=== PATIENT | male | born 1975 | race American Indian/Alaskan Native ===

== ENCOUNTER 2016-11-21 22:42 | Emergency (ER) | payer MEDICAID ==
[~2016-11-21] VITALS: Ht 185.4 cm; Wt 103.4 kg
[~2016-11-21 22:42] MED LIST: HYDR-971 PO; ONDA4TAB10 SL
[2016-11-21 22:54] VITALS: BP 117/65
--- NOTE | 2016-11-21 23:26 | PHYS DOC ---
Past Medical History Past Medical History: No Pertinent History Additional Past Medical Histor: pancreatitis Past Surgical History: No Surgical History Alcohol Use: Rarely Drug Use: None Adult General Chief Complaint Chief Complaint: ANKLE PROBLEM [facility] HPI Patient is a 41 year old male presents emergency department stating that he has having left ankle pain. He states the pain is along the medial side in the anterior part of his ankle. He states that he is having numbness and tingling into the toes although he does have good sensation and good movement. Patient also also complaining of left knee pain and discomfort. He states that he went to step off a curb and twisted his ankle around 3:30 today. He has taken 2 Aleve 's without relief. He states he has placed ice packs on the area as well as elevation. Review of Systems Review of Systems Constitutional: Denies fever or chills [] Eyes: Denies change in visual acuity, redness, or eye pain [] HENT: Denies nasal congestion or sore throat [] Respiratory: Denies cough or shortness of breath [] Cardiovascular: No additional information not addressed in HPI [] Musculoskeletal: Denies back pain. C/o left ankle and knee pain Integument: Denies rash or skin lesions [] Neurologic: Denies headache, focal weakness or sensory changes [] Allergies Allergies Allergies Coded Allergies Type Severity Reaction Last Updated Verified No Known Drug Allergies 06/21/16 No Physical Exam Physical Exam Constitutional: Well developed, well nourished, no acute distress, non-toxic appearance. [] HENT: Normocephalic, atraumatic, bilateral external ears normal, oropharynx moist, no oral exudates, nose normal. [] Eyes: PERRLA, EOMI, conjunctiva normal, no discharge. [] Neck: Normal range of motion, no tenderness, supple, no stridor. [] Cardiovascular:Heart rate regular rhythm Lungs & Thorax: no respiratory distress Skin: Warm, dry, no erythema, no rash. [] Back: No tenderness Extremities: Left medial and anterior ankle tenderness, no cyanosis, no clubbing , ROM intact, no edema. Peripheral pulses 2+ cap refill brisk less than 2 seconds. Patient was able to move toes without difficulty. Patient with pain noted along the medial and lateral part of the knee. No bruising or discoloration noted at the knee or ankle area. No deformities noted. Neurologic: Alert and oriented X 3, normal motor function, normal sensory function, no focal deficits noted. [] Psychologic: Affect normal, judgement normal, mood normal. [] Current Patient Data Vital Signs Vital Signs Date Time Temp Pulse Resp B/P Pulse Ox O2 Delivery O2 Flow Rate FiO2 11/21/16 22:54 97.7 63 16 99 Room Air 97.7 EKG EKG [] Radiology/Procedures Radiology/Procedures [] Course & Med Decision Making Course & Med Decision Making Pertinent Labs and Imaging studies reviewed. (See chart for details) Ankle and knee x-rays are negative for any bony abnormalities. Patient will be placed in a Jason wrap to the left ankle with a Air-Stirrup splint. Patient will be discharged home with recommendations for ibuprofen 800 mg every 8 hours with food stop taking few develop an upset stomach. Wear the Jason wrap for the next 5- 7 days in the Air-Stirrup splint for the next 7-10 days. Ice packs on 20 minutes off 20 minutes several times a day elevation as much as possible. Follow -up with orthopedic if he continued to have pain within the next week. Patient agrees with discharge instructions treatment regimens and follow-up recommendations. Patient was provided with signs and symptoms to return back to emergency department. [] Dragon Disclaimer Dragon Disclaimer This electronic medical record was generated, in whole or in part, using a voice recognition dictation system. Departure Departure Impression: Primary Impression: Left ankle sprain Disposition: HOME, SELF-CARE Condition: STABLE Referrals: NO PCP (PCP) Patient Instructions: Ankle Sprain, [id number] Additional Instructions: X-rays of both your knee and ankle were negative for any bony abnormalities. Home to rest. Ice packs on 20 minutes off 20 minutes several times a day. Elevation as much as possible. Ibuprofen 800 mg every 8 hours with food stop taking few develop an upset stomach. Wear the Jason wrap for the next 5-7 days. Wear the Air-Stirrup splint for the next 7-10 days. Follow-up with orthopedic in the next week. Return back to emergency prior signs symptoms of become worse. ADELE CAMPBELL NP Nov 21, 2016 23:26
--- NOTE | 2016-11-22 08:17 | RAD ---
Left knee, 3 views, 11/21/2016: History: Injury, pain No fracture or dislocation is identified. There is mild spurring at the knee joint. A small sclerotic focus in the medial aspect of the distal femur is probably an old healed fibrous cortical defect. No joint effusion is evident. IMPRESSION: No acute left knee abnormality is detected.
--- NOTE | 2016-11-22 08:22 | RAD ---
Left ankle, 3 views, 11/21/2016: History: Ankle injury, pain No fracture or dislocation is identified. There is mild spurring at the ankle joint. IMPRESSION: No acute abnormality is detected
== END 2016-11-22 00:20 | disposition home or self-care (01) ==
LOC: ER 22:42
DX: S93.402A Sprain of unspecified ligament of left ankle, initial encounter (principal); X50.1XXA Overexertion from prolonged static or awkward postures, initial encounter; Y93.89 Activity, other specified; Y92.89 Other specified places as the place of occurrence of the external cause; Y99.8 Other external cause status
CPT/HCPCS: 29515; 73562; 73610; 99284-25

== ENCOUNTER 2016-12-09 15:12 | Emergency (ER) | payer MEDICAID ==
[~2016-12-09] VITALS: Ht 185.4 cm; Wt 106.6 kg
[2016-12-09 16:07] LABS: BASO % 1 % (0-3); EOS % 1 % (0-3); HEMATOCRIT 43.8 % (39.0-53.0); HEMOGLOBIN 14.4 g/dL (13.0-17.5); LYMPH # 2.3 x10^3/uL (1.0-4.8); LYMPH % 39 % (24-48); MEAN CORPUSCULAR HEMOGLOBIN 31 pg (25-35); MEAN CORPUSCULAR HGB CONC 33 g/dL (31-37); MEAN CORPUSCULAR VOLUME 93 fL (79-100); MONO % 10 % (0-9); NEUT % 50 % (31-73); PLATELET COUNT 198 x10^3/uL (140-400); RED BLOOD COUNT 4.71 x10^6/uL (4.30-5.70); RED CELL DISTRIBUTION WIDTH 14.9 % (11.5-14.5); WHITE BLOOD COUNT 6.1 x10^3/uL (4.0-11.0)
[2016-12-09 16:15] LABS: PROTHROMBIN TIME PATIENT 12.8 SEC (11.7-14.0)
[2016-12-09] MEDS ORDERED: IV NORMAL SALINE 1000ML BAG 1,000 ML IV ONE (16:15)
[2016-12-09] MEDS ORDERED: FENTANYL PF 100 MCG/2 ML VIAL. IV ONE (16:15)
[2016-12-09] MEDS ORDERED: ONDANSETRON PF 4 MG/2 ML VIAL. IV ONE (16:15)
[2016-12-09 16:20] LABS: CALCIUM 9.2 mg/dL (8.5-10.1); CREATININE 0.9 mg/dL (0.7-1.3); GFR 112.5; POTASSIUM 3.7 mmol/L (3.5-5.1)
[2016-12-09 16:25] LABS: BARBITURATES NEG (NEG); BENZODIAZEPINES NEG (NEG); CANNABINOIDS POS (NEG); COCAINE NEG (NEG); METHADONE NEG (NEG); OPIATES NEG (NEG); PHENCYCLIDINE NEG (NEG)
[2016-12-09 16:25] LABS: ALBUMIN 4.1 g/dL (3.4-5.0); ALBUMIN/GLOBULIN RATIO 1.3 (1.0-1.7); TOTAL BILIRUBIN 0.9 mg/dL (0.2-1.0); TOTAL PROTEIN 7.3 g/dL (6.4-8.2)
[2016-12-09 16:26] LABS: ETHANOL, URINE NEG (NEG)
--- NOTE | 2016-12-09 16:27 | RAD ---
Portable chest, 12/09/2016: History: Epigastric pain, nausea and vomiting The heart size and pulmonary vascularity are normal. No pulmonary infiltrates are seen. There is no evidence of pleural fluid. IMPRESSION: No acute cardiopulmonary abnormality is detected.
[2016-12-09 17:25] VITALS: BP 129/73
--- NOTE | 2016-12-09 17:32 | PHYS DOC ---
Past Medical History Past Medical History: Other Additional Past Medical Histor: pancreatitis Past Surgical History: No Surgical History Alcohol Use: Rarely Drug Use: None Adult General Chief Complaint Chief Complaint: ABDOMINAL PAIN HPI HPI 41-year-old male who is otherwise healthy came home from work today around 2 AM and felt nauseous. He was able to go to sleep and then woke up later in the morning and vomited several times. Since that time is been unable to keep anything down. He states he has pain in his upper abdomen that is crampy in nature and radiates out to it's flanks. He denies any lower abdominal pain. He denies any fever chills or sweats. He has not had any melena or hematemesis. He denies any chest pain or shortness of breath. [] Review of Systems Review of Systems Constitutional: Denies fever or chills [] Eyes: Denies change in visual acuity, redness, or eye pain [] HENT: Denies nasal congestion or sore throat [] Respiratory: Denies cough or shortness of breath [] Cardiovascular: No additional information not addressed in HPI [] GI: Per history of present illness [] : Denies dysuria or hematuria [] Musculoskeletal: Denies back pain or joint pain [] Integument: Denies rash or skin lesions [] Neurologic: Denies headache, focal weakness or sensory changes [] Endocrine: Denies polyuria or polydipsia [] Current Medications Current Medications Current Medications Medications (Trade) Dose Ordered Sig/Jose Start Time Stop Time Status Last Admin Dose Admin Fentanyl Citrate (Fentanyl 2ml Vial) 50 mcg 1X ONCE 12/09/16 16:15 12/09/16 16:17 DC 12/09/16 16:21 50 MCG Ondansetron HCl (Zofran) 4 mg 1X ONCE 12/09/16 16:15 12/09/16 16:16 DC 12/09/16 16:19 4 MG Sodium Chloride (Iv Sodium Chloride 0.9% 1000ml Bag) 1,000 ml @ 1,000 mls/hr 1X ONCE 12/09/16 16:15 12/09/16 17:14 DC 12/09/16 16:21 1,000 MLS/HR Allergies Allergies Allergies Coded Allergies Type Severity Reaction Last Updated Verified No Known Drug Allergies 06/21/16 No Physical Exam Physical Exam Constitutional: Well developed, well nourished, mild distress, non-toxic appearance. [] HENT: Normocephalic, atraumatic, bilateral external ears normal, oropharynx moist, no oral exudates, nose normal. [] Eyes: PERRLA, EOMI, conjunctiva normal, no discharge. [] Neck: Normal range of motion, no tenderness, supple, no stridor. [] Cardiovascular:Heart rate regular rhythm, no murmur [] Lungs & Thorax: Bilateral breath sounds clear to auscultation [] Abdomen: Bowel sounds normal, soft, no tenderness, no masses, no pulsatile masses. [] Skin: Warm, dry, no erythema, no rash. [] Back: No tenderness, no CVA tenderness. [] Extremities: No tenderness, no cyanosis, no clubbing, ROM intact, no edema. [] Neurologic: Alert and oriented X 3, normal motor function, normal sensory function, no focal deficits noted. [] Psychologic: Affect normal, judgement normal, mood normal. [] Current Patient Data Vital Signs Vital Signs Date Time Temp Pulse Resp B/P Pulse Ox O2 Delivery O2 Flow Rate FiO2 12/09/16 16:21 20 99 Room Air 12/09/16 15:15 97.7 52 135/89 97.7 Lab Values Laboratory Tests Test 12/09/16 15:30 12/09/16 15:55 White Blood Count 6.1x10^3/uL (4.0-11.0) Red Blood Count 4.71x10^6/uL (4.30-5.70) Hemoglobin 14.4g/dL (13.0-17.5) Hematocrit 43.8% (39.0-53.0) Mean Corpuscular Volume 93fL (79-100) Mean Corpuscular Hemoglobin 31pg (25-35) Mean Corpuscular Hemoglobin Concent 33g/dL (31-37) Red Cell Distribution Width 14.9% (11.5-14.5) H Platelet Count 198x10^3/uL (140-400) Neutrophils (%) (Auto) 50% (31-73) Lymphocytes (%) (Auto) 39% (24-48) Monocytes (%) (Auto) 10% (0-9) H Eosinophils (%) (Auto) 1% (0-3) Basophils (%) (Auto) 1% (0-3) Neutrophils # (Auto) 3.1x10^3uL (1.8-7.7) Lymphocytes # (Auto) 2.3x10^3/uL (1.0-4.8) Monocytes # (Auto) 0.6x10^3/uL (0.0-1.1) Eosinophils # (Auto) 0.1x10^3/uL (0.0-0.7) Basophils # (Auto) 0.0x10^3/uL (0.0-0.2) Prothrombin Time 12.8SEC (11.7-14.0) Prothrombin Time INR 1.0 (0.8-1.1) Sodium Level 146mmol/L (136-145) H Potassium Level 3.7mmol/L (3.5-5.1) Chloride Level 109mmol/L (98-107) H Carbon Dioxide Level 31mmol/L (21-32) Anion Gap 6 (6-14) Blood Urea Nitrogen 13mg/dL (8-26) Creatinine 0.9mg/dL (0.7-1.3) Estimated GFR (Cockcroft-Gault) 112.5 BUN/Creatinine Ratio 14 (6-20) Glucose Level 102mg/dL (70-99) H Calcium Level 9.2mg/dL (8.5-10.1) Total Bilirubin 0.9mg/dL (0.2-1.0) Aspartate Amino Transferase (AST) 16U/L (15-37) Alanine Aminotransferase (ALT) 37U/L (16-63) Alkaline Phosphatase 67U/L (46-116) Troponin I Quantitative < 0.017ng/mL (0.000-0.055) DP-Ack-J-Type Natriuretic Peptide 36pg/mL (0-124) Total Protein 7.3g/dL (6.4-8.2) Albumin 4.1g/dL (3.4-5.0) Albumin/Globulin Ratio 1.3 (1.0-1.7) Lipase 115U/L (73-393) Urine Opiates Screen Neg (NEG) Urine Methadone Screen Neg (NEG) Urine Barbiturates Neg (NEG) Urine Phencyclidine Screen Neg (NEG) Urine Amphetamine/Methamphetamine Neg (NEG) Urine Benzodiazepines Screen Neg (NEG) Urine Cocaine Screen Neg (NEG) Urine Cannabinoids Screen Pos (NEG) Urine Ethyl Alcohol Neg (NEG) Laboratory Tests 12/09/16 15:30 Laboratory Tests 12/09/16 15:30 EKG EKG EKG: Normal sinus rhythm rate of [address]-T changes [] Radiology/Procedures Radiology/Procedures [] Impressions: PROCEDURE: CHEST AP ONLY Portable chest, 12/09/2016: History: Epigastric pain, nausea and vomiting The heart size and pulmonary vascularity are normal. No pulmonary infiltrates are seen. There is no evidence of pleural fluid. IMPRESSION: No acute cardiopulmonary abnormality is detected. Course & Med Decision Making Course & Med Decision Making Pertinent Labs and Imaging studies reviewed. (See chart for details) [ED course: Evaluation reveals 41-year-old male with nausea and vomiting. During his stay in the emergency department he had some concerning findings on the monitor. It appeared as if he was in ventricular tachycardia and a lengthy strip was pulled off the monitor. I had Dr. CROOK come down to evaluate the findings and he agreed that it appeared to be artifact. Patient never did have any chest pain or palpitations during his stay in the department. He was given IV fluids and Zofran which did help alleviate his symptoms.] Dragon Disclaimer Dragon Disclaimer This electronic medical record was generated, in whole or in part, using a voice recognition dictation system. Departure Departure Impression: Primary Impression: Vomiting Disposition: 01 HOME, SELF-CARE Condition: IMPROVED Referrals: NO PCP (PCP) Patient Instructions: Nausea and Vomiting Additional Instructions: Thank you for allowing us to participate in your care today. Followup with your primary care physician in 3 days if your symptoms do not improve. Return to the emergency department you have any new or concerning findings. This should be evaluated by the primary care physician and any necessary consulting services for continued management within a few days after discharge. Return to emergency room if you have any new or concerning symptoms including but not limited to fever, chills, nausea, vomiting, intractable pain, any new rashes, chest pain, shortness of air, uncontrolled bleeding, difficulty breathing, and/or vision loss. You may have been prescribed medication that can change in your level of thinking and ability to operate machinery. These medications include hydrocodone and Ativan. Also, Benadryl has been known to do this as well. Be sure to check with your pharmacist and ask if the medications you've prescribed can affect your level of consciousness. I recommend not operating heavy machinery or driving while on medication such as these. Scripts Ondansetron (Ondansetron Odt)4 Mg Tab.rapdis1 Tab PO PRN Q6-8HRS VOMITING #16 TAB Prov:ROSITA GARCIA DO 12/09/16 Problem Qualifiers Primary Impression: Vomiting Vomiting type: unspecified Vomiting Intractability: unspecified Nausea presence: unspecified Qualified Code: R11.10 - Vomiting, unspecified ROSITA GARCIA DO Dec 09, 2016 17:32
[2016-12-09] MEDS ORDERED: ONDA4TAB12 PO (17:41)
--- NOTE | 2016-12-10 06:05 | EKG ---
[facility] [address] [place] [address] Test Date: 2016-12-09 Test Time: 15:59:52 Pat Name: CHESTER BREWER Department: Room: Gender: M Dealership Manager: : 1975 Requested By: ROSITA GARCIA Order Number: [id number] Reading MD: Alisia Reyes Measurements Intervals Marlin Rate: 49 P: 42 CO: 166 QRS: 28 QRSD: 86 T: 17 QT: 448 QTc: 404 Interpretive Statements SINUS BRADYCARDIA OTHERWISE NORMAL EKG Electronically Signed On 12-11-2016 21:28:17 CDT by Alisia Reyes
== END 2016-12-09 17:50 | disposition home or self-care (01) ==
LOC: ER 15:12
DX: R11.2 Nausea with vomiting, unspecified (principal); R10.10 Upper abdominal pain, unspecified; Z87.19 Personal history of other diseases of the digestive system
CPT/HCPCS: 36415; 71010; 80053; 83690; 83880; 84484; 85027; 85610; 93005; 96361; 96374; 96375; 99285; G0481; J2405; J3010; J7030

== ENCOUNTER 2017-02-03 08:44 | Emergency (ER) | payer SELFPAY ==
[~2017-02-03] VITALS: Ht 185.4 cm; Wt 106.6 kg
[~2017-02-03 08:44] MED LIST changes: +ONDA4TAB12 PO
[2017-02-03] MEDS ORDERED: FAMOTIDINE 20 MG/2 ML VIAL IVP ONE (09:30)
[2017-02-03] MEDS ORDERED: ONDANSETRON PF 4 MG/2 ML VIAL. IV ONE (09:30)
[2017-02-03] MEDS ORDERED: fentaNYL PF VIAL 100 MCG/2 ML VIAL IV ONE (09:30)
[2017-02-03] MEDS ORDERED: IV NORMAL SALINE 1000ML BAG 1,000 ML IV ONE (09:30)
[2017-02-03 09:31] LABS: BASO % 1 % (0-3); EOS % 1 % (0-3); HEMATOCRIT 41.1 % (39.0-53.0); LYMPH # 1.7 x10^3/uL (1.0-4.8); LYMPH % 31 % (24-48); MEAN CORPUSCULAR HEMOGLOBIN 31 pg (25-35); MEAN CORPUSCULAR HGB CONC 34 g/dL (31-37); MEAN CORPUSCULAR VOLUME 92 fL (79-100); MONO % 10 % (0-9); NEUT % 57 % (31-73); PLATELET COUNT 200 x10^3/uL (140-400); RED BLOOD COUNT 4.45 x10^6/uL (4.30-5.70); WHITE BLOOD COUNT 5.4 x10^3/uL (4.0-11.0)
--- NOTE | 2017-02-03 09:33 | PHYS DOC ---
Past Medical History Past Medical History: Other Additional Past Medical Histor: pancreatitis Past Surgical History: No Surgical History Alcohol Use: Occasionally Drug Use: Marijuana Adult General Chief Complaint Chief Complaint: ABDOMINAL PAIN HPI HPI Patient is a 41 year old male with history of pancreatitis who presents today with nausea vomiting and diarrhea that began 5 days ago. Denies any alcohol abuse. Patient denies any fever, denies any hematemesis or melena. Patient denies any urgency frequency dysuria. Review of Systems Review of Systems Constitutional: Denies fever or chills [] Eyes: Denies change in visual acuity, redness, or eye pain [] HENT: Denies nasal congestion or sore throat [] Respiratory: Denies cough or shortness of breath [] Cardiovascular: No additional information not addressed in HPI [] GI: Left upper quadrant abdominal pain with nausea vomiting and diarrhea : Denies dysuria or hematuria [] Musculoskeletal: Denies back pain or joint pain [] Integument: Denies rash or skin lesions [] Neurologic: Denies headache, focal weakness or sensory changes [] Endocrine: Denies polyuria or polydipsia [] Current Medications Current Medications Current Medications Medications (Trade) Dose Ordered Sig/Jose Start Time Stop Time Status Last Admin Dose Admin Azithromycin (Zithromax) 1,000 mg 1X ONCE 02/03/17 11:00 02/03/17 11:01 DC 02/03/17 10:54 1,000 MG Ceftriaxone Sodium (Rocephin Im) 250 mg 1X ONCE 02/03/17 11:00 02/03/17 11:01 DC 02/03/17 10:54 250 MG Famotidine (Pepcid) 20 mg 1X ONCE 02/03/17 09:30 02/03/17 09:31 DC 02/03/17 09:28 20 MG Fentanyl Citrate (Fentanyl 2ml Vial) 50 mcg 1X ONCE 02/03/17 09:30 02/03/17 09:31 DC 02/03/17 09:29 50 MCG Metronidazole (Flagyl) 2,000 mg 1X ONCE 02/03/17 11:00 02/03/17 11:01 DC 02/03/17 10:53 2,000 MG Ondansetron HCl (Zofran) 4 mg 1X ONCE 02/03/17 09:30 02/03/17 09:31 DC 02/03/17 09:28 4 MG Sodium Chloride 1,000 ml @ 1,000 mls/hr 1X ONCE 02/03/17 09:30 02/03/17 10:29 DC 02/03/17 09:29 1,000 MLS/HR Allergies Allergies Allergies Coded Allergies Type Severity Reaction Last Updated Verified tramadol Allergy Intermediate rash 02/03/17 Yes Physical Exam Physical Exam Constitutional: Well developed, well nourished, no acute distress, non-toxic appearance. [] HENT: Normocephalic, atraumatic, bilateral external ears normal, oropharynx moist, no oral exudates, nose normal. [] Eyes: PERRLA, EOMI, conjunctiva normal, no discharge. [] Neck: Normal range of motion, no tenderness, supple, no stridor. [] Cardiovascular:Heart rate regular rhythm, no murmur [] Lungs & Thorax: Bilateral breath sounds clear to auscultation [] Abdomen: Bowel sounds normal, soft, mild tenderness on palpation of the left upper quadrant, no right upper or right lower quadrant tenderness, negative Proctor sign, negative psoas sign, negative obturator sign, no guarding, no rebound pain or tenderness, no masses, no pulsatile masses. [] Skin: Warm, dry, no erythema, no rash. [] Back: No tenderness, no CVA tenderness. [] Extremities: No tenderness, no cyanosis, no clubbing, ROM intact, no edema. [] Neurologic: Alert and oriented X 3, normal motor function, normal sensory function, no focal deficits noted. [] Psychologic: Affect normal, judgement normal, mood normal. [] Current Patient Data Vital Signs Vital Signs Date Time Temp Pulse Resp B/P (MAP) Pulse Ox O2 Delivery O2 Flow Rate FiO2 02/03/17 10:00 70 14 145/80 (101) 98 Room Air 02/03/17 08:50 98.3 98.3 Lab Values Laboratory Tests Test 02/03/17 09:20 02/03/17 09:25 White Blood Count 5.4 x10^3/uL (4.0-11.0) Red Blood Count 4.45 x10^6/uL (4.30-5.70) Hemoglobin 14.0 g/dL (13.0-17.5) Hematocrit 41.1 % (39.0-53.0) Mean Corpuscular Volume 92 fL (79-100) Mean Corpuscular Hemoglobin 31 pg (25-35) Mean Corpuscular Hemoglobin Concent 34 g/dL (31-37) Red Cell Distribution Width 15.0 % (11.5-14.5) H Platelet Count 200 x10^3/uL (140-400) Neutrophils (%) (Auto) 57 % (31-73) Lymphocytes (%) (Auto) 31 % (24-48) Monocytes (%) (Auto) 10 % (0-9) H Eosinophils (%) (Auto) 1 % (0-3) Basophils (%) (Auto) 1 % (0-3) Neutrophils # (Auto) 3.1 x10^3uL (1.8-7.7) Lymphocytes # (Auto) 1.7 x10^3/uL (1.0-4.8) Monocytes # (Auto) 0.6 x10^3/uL (0.0-1.1) Eosinophils # (Auto) 0.1 x10^3/uL (0.0-0.7) Basophils # (Auto) 0.0 x10^3/uL (0.0-0.2) Sodium Level 141 mmol/L (136-145) Potassium Level 4.3 mmol/L (3.5-5.1) Chloride Level 106 mmol/L (98-107) Carbon Dioxide Level 28 mmol/L (21-32) Anion Gap 7 (6-14) Blood Urea Nitrogen 11 mg/dL (8-26) Creatinine 0.9 mg/dL (0.7-1.3) Estimated GFR (Cockcroft-Gault) 112.5 BUN/Creatinine Ratio 12 (6-20) Glucose Level 97 mg/dL (70-99) Calcium Level 8.8 mg/dL (8.5-10.1) Total Bilirubin 1.1 mg/dL (0.2-1.0) H Aspartate Amino Transferase (AST) 14 U/L (15-37) L Alanine Aminotransferase (ALT) 25 U/L (16-63) Alkaline Phosphatase 60 U/L (46-116) Total Protein 6.5 g/dL (6.4-8.2) Albumin 3.6 g/dL (3.4-5.0) Albumin/Globulin Ratio 1.2 (1.0-1.7) Lipase 83 U/L (73-393) Ethyl Alcohol Level < 10 mg/dL (0-10) Urine Collection Type Unknown Urine Color Yellow Urine Clarity Clear Urine pH 6.0 Urine Specific [place] 1.025 Urine Protein Negative mg/dL (NEG-TRACE) Urine Glucose (UA) Negative mg/dL (NEG) Urine Ketones (Stick) Negative mg/dL (NEG) Urine Blood Negative (NEG) Urine Nitrite Negative (NEG) Urine Bilirubin Negative (NEG) Urine Urobilinogen Dipstick 1.0 mg/dL (0.2 mg/dL) Urine Leukocyte Esterase Small (NEG) Urine RBC 0 /HPF (0-2) Urine WBC 5-10 /HPF (0-4) Urine Squamous Epithelial Cells Few /LPF Urine Bacteria Few /HPF (0-FEW) Urine Mucus Marked /LPF Urine Opiates Screen Neg (NEG) Urine Methadone Screen Neg (NEG) Urine Barbiturates Neg (NEG) Urine Phencyclidine Screen Neg (NEG) Urine Amphetamine/Methamphetamine Neg (NEG) Urine Benzodiazepines Screen Neg (NEG) Urine Cocaine Screen Neg (NEG) Urine Cannabinoids Screen Pos (NEG) Urine Ethyl Alcohol Neg (NEG) Laboratory Tests 02/03/17 09:20 Laboratory Tests 02/03/17 09:20 EKG EKG [] Radiology/Procedures Radiology/Procedures [] Course & Med Decision Making Course & Med Decision Making Pertinent Labs and Imaging studies reviewed. (See chart for details) This is a 41 year old male patient with history of pancreatitis who presents today with nausea vomiting and diarrhea that began 5 days ago. Patient denies any alcohol use. CBC CMP lipase with no acute findings. Urine has small amount of leukocytes, patient denies any urgency frequency or dysuria. Urine was sent to lab for culture and STDs check. Informed by the RN December they found patient and his girlfriend in bed in the ED , the RN had to ask them to get out of the bed specifically the girlfriend. I went to give patient results and the girlfriend was in bed again and patient standing next to the bed. Informed patient his urine has small infection and inquired if he has any urinary tract symptoms including urgency, frequency or dysuria, he stated no. Inquired if he has any STD concerns. or issues like kidney stones he kept quiet for a while then he stated he has history of kidney stones. Informed him his urine does not have any blood today to indicate kidney stones. Neither does he have any flank pain. Informed patient his urine has infection in it and sometimes it can be an indication of STDs. Informed him i will send his urine to lab for culture as well as STD check and we will call him in the next 3 days if his results are positive STD. Informed if he is concerned about STD we will be glad to treat him in the ED prophylaxis otherwise it is hard to find patient's via phone once they leave the Ed which his girlfriend asked if he gave us the right number. He stated he gave registration a phone number. Informed him if we treat him we recommend his partners to be treated otherwise the disease will be shared if present and never clear. His partner was in the ED. She wanted to be treated. I informed him he can wait for three days for results and get treated if positive or he can get treated prophylaxis in the Ed. Girlfrienjoseph was interested in treatment, she asked if they will charge her for triage and visit and informed her yes it will be a regular ED visit and they will charge them, girlfriend stated she has a huge doctors bill and would like to follow up with her doctor because she does not want a big ED visit bill, informed her they should not have sex until she gets treated or results are negative which they cr were okay with. Patient requested to be treated. Ordered STD treatment in the ED. RN Candice Noriega went to give patient IM medication, she requested patient to expose only the upper buttocks for the injection. She states patient asked him if she is interested in seeing the whole thing. She states patient informed her he has been checking out since she started caring for her which is a form of sexual harassment. Candice had to remove herself from the room and talk to the charge nurse about it. Patient's symptoms for nausea and vomiting are probably viral. Recommended he pushes fluids maintain good hand hygiene at home. We'll discharge him with Zofran, dicyclomine, Tylenol 3 as needed for severe pain. He was provided a doctor's list as well as a urogynaecologist for follow-up in the next 3-7 days if symptoms continue. He was provided return precautions. Discharged in stable condition. Dragon Disclaimer Dragon Disclaimer This electronic medical record was generated, in whole or in part, using a voice recognition dictation system. Departure Departure Impression: Primary Impression: Nausea & vomiting Additional Impressions: Diarrhea Viral illness Abdominal pain, LUQ (left upper quadrant) Disposition: 01 HOME, SELF-CARE Condition: STABLE Referrals: NO PCP (PCP) follow-up with a doctor from the list provided as soon as he can YOSELIN SANDOVAL MD Patient Instructions: Diarrhea, Nausea and Vomiting, [id number] Additional Instructions: You were seen for diarrhea nausea and vomiting as well as left upper quadrant abdominal pain, your symptoms are viral. We highly recommend he push fluids maintain good hand hygiene at home. Take the prescribed medicines as ordered. Follow-up with your own doctor from the list provided in the next 3-7 days. Come back to the ED at any point symptoms worsen. Scripts Acetaminophen With Codeine (TYLENOL WITH CODEINE #3 TABLET) 1 Each Tablet 1 TAB PO PRN Q6HRS Y for PAIN for 30 Days, TAB Prov: KAYLA CRUZ APRN 02/03/17 Dicyclomine Hcl (DICYCLOMINE HCL) 20 Mg Tablet 1 TAB PO TID, #30 TAB 1 Refill Prov: KAYLA CRUZ APRN 02/03/17 Promethazine Hcl (PROMETHAZINE HCL) 25 Mg Tablet 1 TAB PO PRN Q6HRS, #20 TAB Prov: KAYLA CRUZ [employer] 02/03/17 Problem Qualifiers Primary Impression: Nausea & vomiting Vomiting type: unspecified Vomiting Intractability: non-intractable Qualified Codes: R11.2 - Nausea with vomiting, unspecified Additional Impressions: Diarrhea Diarrhea type: unspecified type Qualified Codes: R19.7 - Diarrhea, unspecified KAYLA CRUZ APRN February 03, 2017 09:33
[2017-02-03 09:48] LABS: BILIRUBIN,URINE NEGATIVE (NEG); GLUCOSE,URINE NEGATIVE (NEG); NITRITE,URINE NEGATIVE (NEG); PROTEIN,URINE NEGATIVE (NEG-TRACE)
[2017-02-03 09:51] LABS: CALCIUM 8.8 mg/dL (8.5-10.1); CREATININE 0.9 mg/dL (0.7-1.3); GFR 112.5; POTASSIUM 4.3 mmol/L (3.5-5.1)
[2017-02-03 09:57] LABS: ALBUMIN 3.6 g/dL (3.4-5.0); ALBUMIN/GLOBULIN RATIO 1.2 (1.0-1.7); TOTAL BILIRUBIN 1.1 mg/dL (0.2-1.0); TOTAL PROTEIN 6.5 g/dL (6.4-8.2)
[2017-02-03 09:57] LABS: BACTERIA,URINE FEW /HPF (0-FEW); RBC,URINE 0 /HPF (0-2); SQUAMOUS EPITHELIAL CELL,UR FEW /LPF
[2017-02-03 10:00] VITALS: BP 145/80
[2017-02-03 10:12] LABS: BARBITURATES NEG (NEG); BENZODIAZEPINES NEG (NEG); CANNABINOIDS POS (NEG); COCAINE NEG (NEG); METHADONE NEG (NEG); OPIATES NEG (NEG); PHENCYCLIDINE NEG (NEG)
[2017-02-03] MEDS ORDERED: PROM25TA10 PO (10:18)
[2017-02-03] MEDS ORDERED: DICY20TA3 PO (10:18)
[2017-02-03] MEDS ORDERED: ACET-704 PO (10:18)
[2017-02-03] MEDS ORDERED: cefTRIAXone IM 250 MG VIAL IM ONE (11:00)
[2017-02-03] MEDS ORDERED: metroNIDAZOLE 500 MG TABLET PO ONE (11:00)
[2017-02-03] MEDS ORDERED: AZITHROMYCIN 250 MG TABLET. PO ONE (11:00)
== END 2017-02-03 11:07 | disposition home or self-care (01) ==
LOC: ER 08:44
DX: R11.2 Nausea with vomiting, unspecified (principal); R19.7 Diarrhea, unspecified; R10.12 Left upper quadrant pain; B34.9 Viral infection, unspecified; F12.10 Cannabis abuse, uncomplicated; Z88.6 Allergy status to analgesic agent
CPT/HCPCS: 36415; 80053; 80305; 80320; 81001; 83690; 85027; 87086; 87491; 87591; 96361; 96372; 96374; 96375; 99284; J0696; J2405; J3010; J7030; Q0144; S0028; G0480; G0481

== ENCOUNTER 2017-03-20 19:49 | Emergency (ER) | payer SELFPAY ==
[~2017-03-20] VITALS: Ht 185.4 cm; Wt 106.6 kg
[~2017-03-20 19:49] MED LIST changes: +ACET-704 PO; +DICY20TA3 PO; +PROM25TA10 PO
[2017-03-20 19:50] VITALS: BP 132/72
--- NOTE | 2017-03-20 20:43 | PHYS DOC ---
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 He initially told the nurses that he was having left lateral ankle pain and discomfort. Upon my assessment not only was he complaining of left lateral ankle pain that he was complaining of metatarsal pain and pain at the ball of his foot. There does not appear to be any discoloration. No swelling noted. Patient does have good sensation to the toes peripheral pulses are 2+ cap refill brisk less than 2 seconds. Review of Systems Review of Systems Constitutional: Denies fever or chills [] Eyes: Denies change in visual acuity, redness, or eye pain [] HENT: Denies nasal congestion or sore throat [] Respiratory: Denies cough or shortness of breath [] Cardiovascular: No additional information not addressed in HPI [] GI: Denies abdominal pain, nausea, vomiting, bloody stools or diarrhea [] : Denies dysuria or hematuria [] Musculoskeletal: Denies back pain. Complaint of left ankle and foot pain Integument: Denies rash or skin lesions [] Neurologic: Denies headache, focal weakness or sensory changes [] Endocrine: Denies polyuria or polydipsia [] Current Medications Current Medications Current Medications Medications (Trade) Dose Ordered Sig/[facility] Start Time Stop Time Status Last Admin Dose Admin Ibuprofen (Motrin) 800 mg 1X ONCE 03/20/17 20:45 03/20/17 20:46 DC Allergies Allergies Allergies Coded Allergies Type Severity Reaction Last Updated Verified tramadol Allergy Intermediate rash 02/03/17 Yes Physical Exam Physical Exam Constitutional: Well developed, well nourished, no acute distress, non-toxic appearance. [] HENT: Normocephalic, atraumatic, bilateral external ears normal, oropharynx moist, no oral exudates, nose normal. [] Eyes: PERRLA, EOMI, conjunctiva normal, no discharge. [] Neck: Normal range of motion, no tenderness, supple, no stridor. [] Cardiovascular:Heart rate regular rhythm Lungs & Thorax: No respiratory distress noted Skin: Warm, dry, no erythema, no rash. [] Back: No tenderness Extremities: Left lateral ankle tenderness, and fifth metatarsal in the ball of the foot discomfort. No cyanosis, no clubbing, ROM intact, no edema. Peripheral pulses 2+, Refill brisk less than 2 seconds. Patient with good sensation to the toes. Neurologic: Alert and oriented X 3, normal motor function, normal sensory function, no focal deficits noted. [] Psychologic: Affect normal, judgement normal, mood normal. [] Current Patient Data Vital Signs Vital Signs Date Time Temp Pulse Resp B/P (MAP) Pulse Ox O2 Delivery O2 Flow Rate FiO2 03/20/17 19:50 98.3 60 16 99 Room Air 98.3 EKG EKG [] Radiology/Procedures Radiology/Procedures [] Course & Med Decision Making Course & Med Decision Making Pertinent Labs and Imaging studies reviewed. (See chart for details) Initially x-ray was completed of the left ankle which was negative for any bony abnormalities. Upon assessment patient continued to complain of foot pain and discomfort. X-rays were ordered in which patient states that this can cost money to have x-rays done. Patient states that he is having pain in those areas explained to him that I am not able to provide definite answers as to whether he has a fracture or not due to the fact that no x-rays have been performed yet. Patient will be provided with ibuprofen while awaiting x-ray results of the left foot. Left foot x-ray was negative for any bony abnormalities per Dr. Joseph. Patient will be placed in Jason wrap and an Air-Stirrup splint with recommendations to wear the Jason wrap for the next 5-7 days in the Air-Stirrup splint for the next 7-10 days. Recommended ibuprofen for pain and discomfort. Ice packs on 20 minutes off 20 minutes several times a day elevation as much as possible patient was provided with orthopedic name and number to follow up with. Signs and symptoms to return back to emergency department been provided. Patient agrees with discharge instructions treatment regimens and follow-up recommendations. [] Dragon Disclaimer Dragon Disclaimer This electronic medical record was generated, in whole or in part, using a voice recognition dictation system. Departure Departure Impression: Primary Impression: Left ankle sprain Additional Impression: Left foot pain Disposition: HOME, SELF-CARE Condition: STABLE Referrals: NO PCP (PCP) LAVERNE RAY MD Patient Instructions: Ankle Sprain, [id number], Foot Sprain-Brief Additional Instructions: Your x-rays were negative for any bony abnormalities. Ice packs on 20 minutes off 20 minutes several times a day. Elevation as much as possible. Ibuprofen for pain and discomfort. Wear the Jason wrap for the next 5-7 days in the Air-Stirrup splint for the next 7 -10 days. Follow-up with orthopedic within the next week. Return back to emergency prior signs symptoms of become worse. 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
[2017-03-20] MEDS ORDERED: IBUPROFEN 800 MG TABLET. PO ONE (20:45)
--- NOTE | 2017-03-21 08:39 | RAD ---
LEFT FOOT AP LATERAL OBLIQUE Clinical Indication: foot pain, injury Comparison: None. Findings: There is no acute fracture or dislocation. The bony alignment is normal. Mineralization is normal. No bony erosion. There is no soft tissue abnormality. Small calcaneal enthesophytes. IMPRESSION: No acute fracture or dislocation.
--- NOTE | 2017-03-21 08:52 | RAD ---
LEFT ANKLE AP, LATERAL, OBLIQUE Clinical Indication: ankle pain and injury Comparison: None. Findings: There is no acute fracture or dislocation. Small calcaneal enthesophytes. The ankle mortise is intact. There is no ankle joint effusion. There is no soft tissue swelling. IMPRESSION: No acute fracture.
== END 2017-03-20 21:31 | disposition home or self-care (01) ==
LOC: ER 19:49
DX: S93.402A Sprain of unspecified ligament of left ankle, initial encounter (principal); M79.672 Pain in left foot; F12.10 Cannabis abuse, uncomplicated; Z88.6 Allergy status to analgesic agent; X58.XXXA Exposure to other specified factors, initial encounter; Y93.89 Activity, other specified; Y99.8 Other external cause status; Y92.89 Other specified places as the place of occurrence of the external cause
CPT/HCPCS: 29515; 73610; 73630; 99284-25

== ENCOUNTER 2017-06-30 10:02 | Emergency (ER) | payer SELFPAY ==
[~2017-06-30] VITALS: Ht 185.4 cm; Wt 106.6 kg
[2017-06-30 10:20] VITALS: BP 137/77
[2017-06-30] MEDS ORDERED: ACET-704 PO (10:39)
[2017-06-30] MEDS ORDERED: PRED20TA PO (10:39)
--- NOTE | 2017-06-30 10:39 | PHYS DOC ---
Past Medical History Past Medical History: Other Additional Past Medical Histor: pancreatitis Past Surgical History: No Surgical History Alcohol Use: None Drug Use: Marijuana Adult General Chief Complaint Chief Complaint: THUMB HPI HPI Patient is a 42 year old male presents to the ED complaining of right thumb pain 1 week. States earlier in the week he helped pull someone out of a car by placing his hands under their armpit and thinks that could be the cause of his pain but did not have pain for a few days after the incident. 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 Describes the pain as sharp. Rates the pain as 6 out of 10. Denies bony trauma to thumb, penetrating trauma, redness, fever, chest pain or shortness of breath. Review of Systems Review of Systems Constitutional: Denies fever or chills [] Eyes: Denies change in visual acuity, redness, or eye pain [] HENT: Denies nasal congestion or sore throat [] Respiratory: Denies cough or shortness of breath [] Cardiovascular: No additional information not addressed in HPI [] GI: Denies abdominal pain, nausea, vomiting, bloody stools or diarrhea [] : Denies dysuria or hematuria [] Musculoskeletal: Complains of thumb pain. Denies back pain. [] Integument: Denies rash or skin lesions [] Neurologic: Denies headache, focal weakness or sensory changes [] Endocrine: Denies polyuria or polydipsia [] Allergies Allergies Allergies Coded Allergies Type Severity Reaction Last Updated Verified tramadol Allergy Intermediate rash 02/03/17 Yes Physical Exam Physical Exam Constitutional: Well developed, well nourished, no acute distress, non-toxic appearance. [] HENT: Normocephalic, atraumatic, bilateral external ears normal, oropharynx moist, no oral exudates, nose normal. [] Eyes: PERRLA, EOMI, conjunctiva normal, no discharge. [] Neck: Normal range of motion, no tenderness, supple, no stridor. [] Cardiovascular:Heart rate regular rhythm, no murmur [] Lungs & Thorax: Bilateral breath sounds clear to auscultation [] Abdomen: Bowel sounds normal, soft, no tenderness, no masses, no pulsatile masses. [] Skin: Warm, dry, no erythema, no rash. [] Back: No tenderness, no CVA tenderness. [] Extremities: NO BONY TENDERNESS. PATIENT REPORTS PAIN WITH FLEXION. (SAME ROM REPETITIVE USE AT WORK). MILD TENDERNESS TO TENDON OF OF RIGHT THUMB., no cyanosis, no clubbing, ROM intact, no edema. [] Neurologic: Alert and oriented X 3, normal motor function, normal sensory function, no focal deficits noted. [] Psychologic: Affect normal, judgement normal, mood normal. [] Current Patient Data Vital Signs Vital Signs Date Time Temp Pulse Resp B/P (MAP) Pulse Ox O2 Delivery O2 Flow Rate FiO2 06/30/17 10:20 98.1 62 16 96 Room Air 98.1 EKG EKG [] Radiology/Procedures Radiology/Procedures [] Course & Med Decision Making Course & Med Decision Making Pertinent Labs and Imaging studies reviewed. (See chart for details) []No bony tenderness. No x-ray warranted. Patient requesting XRay of hand. Placed X-ray of hand but patient later decided he did not want to wait for it to be done. Dr. Urrutia saw and examined the patient, agreed with evaluation and plan. Prednisone prescribed. Discussed symptomatic treatment. Discussed follow- up with orthopedics in 1-2 days. Provided contact information/education. Discussed reasons to return to the ED. Patient understands and agrees with plan. Dragon Disclaimer Dragon Disclaimer This electronic medical record was generated, in whole or in part, using a voice recognition dictation system. Departure Departure Impression: Primary Impression: Tendonitis Disposition: 01 HOME, SELF-CARE Condition: STABLE Referrals: ISABELLE WARNER (PCP) CHERIE ALEGRE MD Patient Instructions: Hand Injuries Scripts Prednisone (PREDNISONE) 20 Mg Tablet 2 TAB PO DAILY, #10 TAB Prov: LELE LUNA 06/30/17 LELE LUNA Jun 30, 2017 10:39
== END 2017-06-30 11:11 | disposition home or self-care (01) ==
LOC: ER 10:02
DX: M77.9 Enthesopathy, unspecified (principal); Z88.5 Allergy status to narcotic agent
CPT/HCPCS: 99283

== ENCOUNTER 2017-09-24 11:51 | Emergency (ER) | payer SELFPAY ==
[2017-09-24 12:33] LABS: BASO % 0 % (0-3); EOS % 0 % (0-3); HEMATOCRIT 46.8 % (39.0-53.0); HEMOGLOBIN 15.6 g/dL (13.0-17.5); LYMPH # 1.3 x10^3/uL (1.0-4.8); LYMPH % 7 % (24-48); MEAN CORPUSCULAR HEMOGLOBIN 31 pg (25-35); MEAN CORPUSCULAR HGB CONC 33 g/dL (31-37); MEAN CORPUSCULAR VOLUME 93 fL (79-100); MONO % 6 % (0-9); NEUT % 87 % (31-73); PLATELET COUNT 263 x10^3/uL (140-400); RED BLOOD COUNT 5.04 x10^6/uL (4.30-5.70); WHITE BLOOD COUNT 17.3 x10^3/uL (4.0-11.0)
[2017-09-24 12:34] LABS: ADD MAN DIFF? YES
[2017-09-24 12:45] LABS: PARTIAL THROMBOPLASTIN TIME 30 SEC (24-38); PROTHROMBIN TIME PATIENT 12.6 SEC (11.7-14.0)
[2017-09-24 12:47] LABS: ANION GAP 13 (6-14); BLOOD UREA NITROGEN 13 mg/dL (8-26); BUN/CREATININE RATIO 9 (6-20); CALCIUM 9.3 mg/dL (8.5-10.1); CARBON DIOXIDE 26 mmol/L (21-32); CHLORIDE 107 mmol/L (98-107); CREATININE 1.5 mg/dL (0.7-1.3); GFR 62.1; GLUCOSE 135 mg/dL (70-99); POTASSIUM 3.2 mmol/L (3.5-5.1); SODIUM 146 mmol/L (136-145)
[2017-09-24 12:51] LABS: ALBUMIN 4.3 g/dL (3.4-5.0); ALBUMIN/GLOBULIN RATIO 1.2 (1.0-1.7); ALK PHOS 71 U/L (46-116); ALT (SGPT) 23 U/L (16-63); AST (SGOT) 15 U/L (15-37); TOTAL BILIRUBIN 0.5 mg/dL (0.2-1.0)
[2017-09-24] MEDS: ONDANSETRON PF 4 MG/2 ML VIAL. IV (12:57)
[2017-09-24] MEDS: fentaNYL PF VIAL 100 MCG/2 ML VIAL IV (12:58)
[2017-09-24] MEDS: IV NORMAL SALINE 1000ML BAG 1,000 ML IV (12:58)
[2017-09-24 13:36] LABS: % BASOS 1 % (0-3); PLT ESTIMATE ADEQUATE (ADEQUATE)
[2017-09-24 13:57] LABS: BILIRUBIN,URINE SMALL (NEG); GLUCOSE,URINE NEGATIVE (NEG); NITRITE,URINE NEGATIVE (NEG); PH,URINE 6.5; PROTEIN,URINE 30 mg/dL (NEG-TRACE); UROBILINOGEN,URINE 0.2 mg/dL (0.2 mg/dL)
[2017-09-24 14:20] LABS: RBC,URINE >40 /HPF (0-2)
[2017-09-24 14:21] LABS: BACTERIA,URINE FEW /HPF (0-FEW)
== END 2017-09-24 15:20 | disposition home or self-care (01) ==
LOC: ER 11:51
DX: K92.0 Hematemesis (principal); K92.1 Melena; R31.29 Other microscopic hematuria; F12.10 Cannabis abuse, uncomplicated; Z87.442 Personal history of urinary calculi; Z88.5 Allergy status to narcotic agent
CPT/HCPCS: 36415; 80053; 81001; 83690; 85007; 85025; 85610; 85730; 87086; 96361; 96374; 96375; 99285-25; J2405; J3010; J7030